=== PATIENT | male | born 1985 | race Caucasian/White ===

== ENCOUNTER 2016-07-20 17:06 | Emergency (ER) | payer MEDICAID ==
[~2016-07-20] VITALS: Ht 185.4 cm; Wt 81.0 kg
[2016-07-20 17:12] VITALS: BP 134/79
[2016-07-20] MEDS ORDERED: METHOCARBAMOL 750 MG TABLET ONE (17:54)
[2016-07-20] MEDS ORDERED: KETOROLAC 30 MG/1 ML ONE (17:55)
[2016-07-20] MEDS ORDERED: KETOROLAC 30 MG/1 ML IM ONE (18:00)
[2016-07-20] MEDS ORDERED: METHOCARBAMOL 750 MG TABLET PO ONE (18:00)
== END 2016-07-20 18:34 | disposition home or self-care (01) ==
LOC: ED 18:25
DX: S70.02XA Contusion of left hip, initial encounter (principal); M62.830 Muscle spasm of back; W22.8XXA Striking against or struck by other objects, initial encounter; Y93.72 Activity, wrestling; Y92.89 Other specified places as the place of occurrence of the external cause; Y99.9 Unspecified external cause status
CPT/HCPCS: 73502; 96372; 99284; J1885

== ENCOUNTER 2016-09-13 15:41 | Observation (INO) | payer MEDICAID ==
[2016-09-13] MEDS ORDERED: LORazepam 1MG TABLET ONE (16:23)
[2016-09-14] MEDS ORDERED: ENOXAPARIN 40 MG/0.4 ML ONE (07:49)
[2016-09-14] MEDS ORDERED: FOLIC ACID 1 MG TABLET ONE (07:50)
[2016-09-14] MEDS ORDERED: NICOTINE 14MG/24 HR PATCH.TD24 ONE (07:51)
[2016-09-16 07:18] LABS: DAU SCREEN DISCLAIMER
[2016-09-16 08:41] LABS: BLOOD UREA NITROGEN 19 mg/dL (7-18)
[2016-09-16 08:59] LABS: ACETAMINOPHEN < 2 mcg/mL (10-30)
== END 2016-09-14 22:57 ==
LOC: ED 15:41 → 3E 19:40 → DCLOUNGE 09-14 16:16
PROVIDERS: ADMIT Internal Medicine; ATTEND Internal Medicine
DX: R45.851 Suicidal ideations (principal); F31.9 Bipolar disorder, unspecified; F90.9 Attention-deficit hyperactivity disorder, unspecified type; J32.9 Chronic sinusitis, unspecified; F11.10 Opioid abuse, uncomplicated; F12.10 Cannabis abuse, uncomplicated; F17.210 Nicotine dependence, cigarettes, uncomplicated; Z81.8 Family history of other mental and behavioral disorders
CPT/HCPCS: 36415; 80048; 80307; 80329; 82040; 85025; 87086; 99285; G0378; J1650; G0480

== ENCOUNTER 2016-11-01 22:46 | Emergency (ER) | payer MEDICAID ==
[~2016-11-01] VITALS: Ht 170.2 cm; Wt 165.0 kg
[2016-11-01 23:52] LABS: DAU SCREEN DISCLAIMER
[2016-11-01 23:59] LABS: BLOOD UREA NITROGEN 15 mg/dL (7-18)
[2016-11-02 00:03] LABS: ASPARTATE AMINO TRANSFERASE 326 U/L (15-37)
[2016-11-02 00:04] LABS: ACETAMINOPHEN < 2 mcg/mL (10-30)
[2016-11-02 02:22] VITALS: BP 119/72
== END 2016-11-02 03:11 | disposition home or self-care (01) ==
LOC: ED 23:39
DX: F31.62 Bipolar disorder, current episode mixed, moderate (principal); F29 Unspecified psychosis not due to a substance or known physiological condition
CPT/HCPCS: 36415; 70450; 80053; 80307; 80329; 85025; 99285; G0480

== ENCOUNTER 2018-04-18 12:04 | Emergency (ER) | payer MEDICAID ==
[~2018-04-18] VITALS: Ht 185.4 cm; Wt 84.0 kg
[2018-04-18 12:08] VITALS: BP 137/86
--- NOTE | 2018-04-18 12:34 | NUR ---
PT PRESENTED TO ED WITH COUGH X 2 DAYS. PT A&OX4. PT PLACED IN ROOM AND PLACED ON BP AND CONT. PULSE OXIMETER. PT THEN TAKEN TO RADIOLOGY
[2018-04-18] MEDS ORDERED: KETOROLAC 60 MG/2 ML IM ONE (13:00)
[2018-04-18] MEDS ORDERED: KETOROLAC 30 MG/1 ML ONE (13:14)
--- NOTE | 2018-04-18 13:17 | NUR ---
REPORT GIVEN TO ISARUO FORDE
--- NOTE | 2018-04-18 13:32 | NUR ---
Patient/Caregiver given discharge instructions and they have confirmed that they understand the instructions. Patient ambulatory with steady gait.
== END 2018-04-18 13:42 | disposition home or self-care (01) ==
LOC: ED 12:55
DX: J20.9 Acute bronchitis, unspecified (principal); R06.00 Dyspnea, unspecified; F31.9 Bipolar disorder, unspecified; F90.9 Attention-deficit hyperactivity disorder, unspecified type; F17.200 Nicotine dependence, unspecified, uncomplicated
CPT/HCPCS: 71046; 93005; 96372; 99283; J1885

== ENCOUNTER 2018-06-30 11:19 | Emergency (ER) | payer SELFPAY ==
[~2018-06-30] VITALS: Ht 185.4 cm; Wt 82.0 kg
[2018-06-30 12:09] LABS: BASOPHILS # (AUTO) 0.06 x10^3/uL (0-0.1); BASOPHILS % (AUTO) 1 % (0-1); EOSINOPHILS # (AUTO) 0.13 x10^3/uL (0-0.4); EOSINOPHILS % (AUTO) 2 % (1-7); LYMPHOCYTES # (AUTO) 2.26 x10^3/uL (1-3.4); LYMPHOCYTES % (AUTO) 37 % (22-44); MD NO; MEAN CORPUSCULAR HEMOGLOBIN 32.4 pg (27.5-34.5); MEAN CORPUSCULAR HGB CONC 34.6 g/dL (33.2-36.2); MEAN CORPUSCULAR VOLUME 93.4 fL (81-97); MEAN PLATELET VOLUME 7.9 fL (7.4-10.4); MONOCYTES # (AUTO) 0.45 x10^3/uL (0.2-0.8); MONOCYTES % (AUTO) 7 % (2-9); NEUTROPHILS # (AUTO) 3.27 x10^3/uL (1.8-6.8); NEUTROPHILS % (AUTO) 53 % (42-75); PLATELET COUNT 280 x10^3/uL (130-400); RED BLOOD COUNT 4.96 x10^6/uL (4.38-5.82); RED CELL DISTRIBUTION WIDTH 13.2 % (9.4-14.8)
[2018-06-30 12:18] LABS: ALBUMIN 4.3 g/dL (3.4-5.0); ANION GAP 8 mmol/L (5-15); CALCIUM 9.1 mg/dL (8.5-10.1); CHLORIDE 106 mmol/L (98-107)
--- NOTE | 2018-06-30 12:39 | NUR ---
PT TO ROOM FROM LOBBY WITH STEADY GAIT. PT C/O BILATERAL FLANK PAIN, BLOOD IN URINE AND OCCASIONAL INCONTINENCE. VSS ON RA. NAD, AT BEDSIDE. PT INSTRUCTED TO OBTAIN URINE SAMPLE.
[2018-06-30 13:10] LABS: MICROSCOPIC NOT IND
[2018-06-30 13:16] LABS: CULTURE INDICATED? NO
[2018-06-30] MEDS ORDERED: CYCLOBENZAPRINE 10 MG TABLET PO ONE (13:30)
[2018-06-30] MEDS ORDERED: HYDROcodone/APAP 5/325 TABLET PO ONE (13:30)
[2018-06-30] MEDS ORDERED: CYCLOBENZAPRINE 10 MG TABLET ONE (13:31)
[2018-06-30] MEDS ORDERED: HYDROcodone/APAP 5/325 TABLET ONE (13:32)
--- NOTE | 2018-06-30 13:35 | NUR ---
BREAK RN: PT MEDICATED FOR PAIN. TRANSPORTED TO MRI. UPDATED ON PLAN OF CARE.
[2018-06-30 14:35] VITALS: BP 113/54
== END 2018-06-30 15:18 | disposition home or self-care (01) ==
LOC: ED 15:12
DX: M51.36 Other intervertebral disc degeneration, lumbar region (principal); S39.012A Strain of muscle, fascia and tendon of lower back, initial encounter; X58.XXXA Exposure to other specified factors, initial encounter; Y93.89 Activity, other specified; Y92.89 Other specified places as the place of occurrence of the external cause; Y99.8 Other external cause status
CPT/HCPCS: 36415; 72148; 80048; 81003; 82040; 85025; 99283

== ENCOUNTER 2018-08-17 10:26 | Emergency (ER) | payer OTHER ==
[~2018-08-17] VITALS: Ht 177.8 cm; Wt 84.6 kg
[2018-08-17 10:32] VITALS: BP 142/77
[2018-08-17] MEDS ORDERED: KETOROLAC 30 MG/1 ML ONE (11:40)
--- NOTE | 2018-08-17 11:58 | NUR ---
Discharge instructions discussed with patient, including when to return to emergency department, patient verbalizes understanding. Prescription provided to patient with instruction for use.
[2018-08-17] MEDS ORDERED: KETOROLAC 30 MG/1 ML IM ONE (12:00)
== END 2018-08-17 12:13 | disposition home or self-care (01) ==
LOC: ED 11:51
DX: S80.02XA Contusion of left knee, initial encounter (principal); F17.210 Nicotine dependence, cigarettes, uncomplicated; W19.XXXA Unspecified fall, initial encounter; Y93.89 Activity, other specified; Y92.410 Unspecified street and highway as the place of occurrence of the external cause; Y99.8 Other external cause status
CPT/HCPCS: 29505; 73564; 96372; 99283; J1885

== ENCOUNTER 2019-02-05 11:49 | Emergency (ER) | payer SELFPAY ==
[~2019-02-05] VITALS: Ht 185.4 cm; Wt 90.0 kg
[2019-02-05] MEDS ORDERED: LORA-446 PO (12:12)
[2019-02-05] MEDS ORDERED: BUSP10TA PO (12:12)
[2019-02-05] MEDS ORDERED: DIVA250T4 PO (12:12)
--- NOTE | 2019-02-05 12:21 | NUR ---
PT HERE WITH C/O SI. PT STATES "FOR THE PAST WEEK MY MEDS HAVEN'T BEEN WORKING. I'M ON BUSPAR AND ANOTHER ONE. I'M HEARING VOICES TELLING ME I DESERVE TO AND I'VE HAD THOUGHTS OF DRIVING MY TOW-TRUCK OFF THE BRIDGE. I FEEL LIKE I AM IN MY HEAD AND I CAN'T GET OUT OF IT." PT AAO X 4. DRESSED IN GOWN AND ALL PERSONAL BELONGINGS REMOVED FROM ROOM. 1 BAG OF BELONGINGS TAGGED AND PLACED IN LOCKER AND SECURED. VSS. SUICIDE RISK ASSESSMENT AND MED REC COMPLETED BY THIS RN. PA AT BEDSIDE FOR EXAM.
--- NOTE | 2019-02-05 12:24 | NUR ---
PT AMBULATORY TO RESTROOM WITH STEADY GAIT, UA SENT TO LAB.
[2019-02-05 12:25] LABS: BASOPHILS % (AUTO) 1 % (0-1); EOSINOPHILS # (AUTO) 0.09 x10^3/uL (0-0.4); EOSINOPHILS % (AUTO) 1 % (1-7); LYMPHOCYTES # (AUTO) 2.31 x10^3/uL (1-3.4); LYMPHOCYTES % (AUTO) 21 % (22-44); MD NO; MEAN CORPUSCULAR HEMOGLOBIN 32.8 pg (27.5-34.5); MEAN CORPUSCULAR HGB CONC 33.7 g/dL (33.2-36.2); MEAN CORPUSCULAR VOLUME 97.3 fL (81-97); MEAN PLATELET VOLUME 7.3 fL (7.4-10.4); MONOCYTES # (AUTO) 0.57 x10^3/uL (0.2-0.8); MONOCYTES % (AUTO) 5 % (2-9); NEUTROPHILS # (AUTO) 8.07 x10^3/uL (1.8-6.8); NEUTROPHILS % (AUTO) 72 % (42-75); PLATELET COUNT 283 x10^3/uL (130-400); RED BLOOD COUNT 4.99 x10^6/uL (4.38-5.82); RED CELL DISTRIBUTION WIDTH 12.9 % (9.4-14.8)
--- NOTE | 2019-02-05 12:26 | NUR ---
PT MEETS CRITERIA FOR 1:1 DIRECT LINE OF SIGHT OBS, CNC MACHINE PROGRAMMER NOTIFIED AND SITTER REQUESTED.
[2019-02-05 12:37] LABS: ALBUMIN 4.1 g/dL (3.4-5.0); ANION GAP 5 mmol/L (5-15); CALCIUM 8.6 mg/dL (8.5-10.1); CHLORIDE 109 mmol/L (98-107); CREATININE 0.93 mg/dL (0.7-1.3); SALICYLATE LEVEL 4.2 mg/dL (2.8-20.0)
--- NOTE | 2019-02-05 12:55 | NUR ---
SITTER AT BEDSIDE FOR Q15 MINUTE CHECKS IN DIRECT LINE OF SIGHT. PT RESTING ON GURNEY. LUNCH TRAY ORDERED.
[2019-02-05 12:56] LABS: AMPHETAMINE SCREEN, URINE Negative (Negative); BARBITURATE SCREEN, URINE Negative (Negative); BENZODIAZEPINE SCREEN, URINE Negative (Negative); CANNABINOID SCREEN, URINE Positive (Negative); COCAINE SCREEN, URINE Negative (Negative); METHADONE SCREEN, URINE Negative (Negative); OPIATE SCREEN, URINE Negative (Negative)
--- NOTE | 2019-02-05 13:45 | NUR ---
PT ASLEEP ON [place]. SITTER IN HALLWAY IN DIRECT LINE OF SIGHT. DIET TRAY ORDERED APPROX. 1 HOUR AGO AND HAS NOT BEEN DELIVERED, THIS RN LEFT MESSAGE WITH DIETARY OFFICE.
--- NOTE | 2019-02-05 14:06 | NUR ---
PT ASLEEP ON HOSPITAL BED, SITTER IN HALLWAY IN DIRECT LINE OF SIGHT.
--- NOTE | 2019-02-05 14:12 | NUR ---
PT PROIVIDED LUNCH TRAY. SITTER IN HALLWAY IN DIRECT LINE OF SIGHT.
--- NOTE | 2019-02-05 14:46 | NUR ---
ALL SAFETY MEASURES OBTAINED. SITTER AT DOORWAY, PT WITHIN FULL VIEW
--- NOTE | 2019-02-05 14:46 | NUR ---
TASK RN: RECIEVED BEDSIDE REPORT FROM EULA TEJADA.
--- NOTE | 2019-02-05 15:13 | NUR ---
BEDSIDE REPORT TO EULA TEJADA.
--- NOTE | 2019-02-05 15:16 | NUR ---
PT ASLEEP ON HOSPITAL BED, SITTER IN HALLWAY IN DIRECT LINE OF SIGHT.
--- NOTE | 2019-02-05 15:24 | NUR ---
PT MEDICATED PER ORDER.
--- NOTE | 2019-02-05 15:55 | NUR ---
SW AT BEDSIDE.
--- NOTE | 2019-02-05 16:05 | NUR ---
PT ASLEEP ON HOSPITAL BED, SITTER IN HALLWAY IN DIRECT LINE OF SIGHT. DINNER TRAY ORDERED.
--- NOTE | 2019-02-05 16:53 | NUR ---
PT GIVEN DINNER TRAY. SITTER IN HALLWAY IN DIRECT LINE OF SIGHT FOR CLOSE OBS.
--- NOTE | 2019-02-05 17:47 | NUR ---
PT MOVED TO HOSPITAL BED, NO NEEDS, SITTER IN HALLWAY IN DIRECT LINE OF SIGHT.
--- NOTE | 2019-02-05 18:40 | NUR ---
BAND REAMER MACHINE OPERATOR AT BEDSIDE FOR EXAM. PER REPORT, PLAN IS TO ADJUST PT'S MEDS TO ACCOMMODATE PT'S INCREASE IN STRESS LEVEL.
--- NOTE | 2019-02-05 18:45 | NUR ---
ATTEMPTED TO FAX PACKET TO [facility]. [facility] FAX BUSY. PER KENDELL KNOWLES ALL PHONES AT [facility] ARE GETTING BUSY SIGNALS
[2019-02-05] MEDS ORDERED: HYDROXYZINE PAMOATE 50MG CAP PO PRN (19:00)
--- NOTE | 2019-02-05 19:36 | NUR ---
PT ASLEEP ON HOSPITAL BED, SITTER IN HALLWAY IN DIRECT LINE OF SIGHT.
--- NOTE | 2019-02-05 20:13 | NUR ---
PT ASLEEP ON HOSPITAL BED, SITTER IN HALLWAY IN DIRECT LINE OF SIGHT.
--- NOTE | 2019-02-05 20:26 | NUR ---
MEDICATION REQUESTED FROM PHARMACY.
[2019-02-05] MEDS ORDERED: DIVALPROEX 500 MG TAB.ER.24H ONE (20:33)
[2019-02-05] MEDS ORDERED: ARIPIPRAZOLE 10 MG TABLET ONE (20:33)
[2019-02-05] MEDS: BUSPIRONE 10 MG TABLET PO SCH (20:35)
--- NOTE | 2019-02-05 20:36 | NUR ---
PT MEDICATED PER ORDERS.
--- NOTE | 2019-02-05 20:47 | NUR ---
PT GIVEN SNACKS PER REQUEST. SITTER IN DIRECT LINE OF SIGHT.
--- NOTE | 2019-02-05 20:59 | NUR ---
REPORT GIVEN TO EULA MERINO. CARE TRANSFERRED AT THIS TIME.
[2019-02-05] MEDS ORDERED: DIVALPROEX 500 MG TAB.ER.24H PO SCH (21:00)
[2019-02-05] MEDS ORDERED: ARIPIPRAZOLE 10 MG TABLET PO SCH (21:00)
--- NOTE | 2019-02-05 23:31 | NUR ---
PT SLEEPING AT THIS TIME. SITTER OUT SIDE ROOM, WILL CONT TO MONITOR.
--- NOTE | 2019-02-06 01:36 | NUR ---
REPORT RECEIVED FROM EULA MERINO. ASSUMED CARE OF PT. PT SLEEPING, RESPIRATIONS EVEN AND UNLABORED. SITTER OUTSIDE DOOR, WILL CONTINUE TO MONITOR.
--- NOTE | 2019-02-06 03:31 | NUR ---
SPOKE TO VICTOR M([facility] [employer] SAL[employer] AMBASSADOR) WHO CONFIRMED THEY HAVE NOT RECEIVED THE PACKET. PACKET REFAXED AT THIS TIME.
--- NOTE | 2019-02-06 03:43 | NUR ---
BUSY SIGNAL RECEIVED FROM [facility] FAX MACHINE
--- NOTE | 2019-02-06 06:59 | NUR ---
REPORT FROM EULA SAGE. ASSUMED CARE OF PATIENT AT THIS TIME. PATIENT SLEEPING COMFORTABLY IN [place]. VISIBLE CHEST RISE AND FALL. SITTER AT DOORWAY. Addendum: 02/06/19 at 0836 by PAVAN CORRECTION: PATIENT SLEEPING COMFORTABLY IN HOSPITAL BED.
[2019-02-06 08:00] VITALS: BP 138/72
[2019-02-06] MEDS: BUSPIRONE 10 MG TABLET PO SCH (08:00)
--- NOTE | 2019-02-06 08:00 | NUR ---
PATIENT PROVIDED BREAKFAST TRAY, ALL SAFETY MEASURES IN PLACE, NADN. VS UPDATED IN CHART. SITTER AT DOORWAY WITH PATIENT IN SIGHT. NO ADDITIONAL NEEDS AT THIS TIME. MEDICATION ADMINISTERED PER JUN.
--- NOTE | 2019-02-06 09:50 | NUR ---
PATIENT SLEEPING COMFORTABLY IN HOSPITAL BED, NADN. VISIBLE CHEST RISE AND FALL. SITTER AT DOORWAY WITH PATIENT IN SIGHT.
--- NOTE | 2019-02-06 10:59 | NUR ---
PATIENT SPEAKING WITH PSYCH MD AT BEDSIDE, NADN. MARES REMAINS AT DOORWAY WITH PATIENT IN SIGHT.
[2019-02-06] MEDS ORDERED: SERTRALINE 50MG TABLET PO SCH (11:30)
--- NOTE | 2019-02-06 12:19 | NUR ---
PSYCH MD DISCONTINUED LEGAL HOLD, PATIENT PROVIDED LUNCH TRAY AND TO BE DC'D AFTER LUNCH. FAMILY TO PICK PATIENT UP PER PATIENT, NADN. MARES REMAINS AT DOORWAY AT THIS TIME.
--- NOTE | 2019-02-06 13:22 | NUR ---
DC paperwork up at this time, patient/Caregiver given discharge instructions and they have confirmed that they understand the instructions. Patient ambulatory with steady gait to DC desk, patient provided resources for follow up, family to drive patient home for safe DC. All personal belongings given to patient.
[2019-02-06] MEDS ORDERED: BUSPIRONE 10 MG TABLET PO SCH (16:00)
== END 2019-02-06 13:04 | disposition home or self-care (01) ==
LOC: ED 14:38
DX: F33.2 Major depressive disorder, recurrent severe without psychotic features (principal)
CPT/HCPCS: 36415; 80048; 80307; 82040; 85025; 99284